=== PATIENT | female | born 1960 | race Caucasian/White ===

== ENCOUNTER → 2020-09-22 | Day surgery (SDC) | payer OTHER ==
[~2020-09-22] MED LIST: ALLEGRA ALLERG180 MG PO; ASPIRIN EC81 MG PO; CALCIUM PO; CRESTOR10 MG PO; LEXAPRO 10MG TA10 MG PO; LOVAZA1 GM PO; MULTIPLE VITAM1 EACH PO; NAPROSYN250 MG PO; PROBIOTIC1 EAC3 PO; TROSPIUM CHLORI20 MG PO; VITAMIN D PO; VITAMIN D3125 MCG PO
[2020-09-22 08:42] LABS: HCT 45.3 % (37.0-47.0); MCH 30.7 pg (25.0-31.0); MCHC 33.1 g/dL (32.0-36.0); MCV 92.8 fL (78.0-100.0); RBC 4.88 M/uL (4.20-5.40); RDW 13.5 % (11.5-14.0); WBC 6.8 K/uL (4.0-10.5)
[2020-09-22 09:05] LABS: ALBUMIN 4.2 g/dL (3.4-5.0); BILIRUBIN - TOTAL 0.7 mg/dL (0.2-1.0); BUN/CREAT RATIO (CALC) 27.5 RATIO; CREATININE 0.69 mg/dL (0.51-0.95); POTASSIUM 3.9 mmol/L (3.5-5.1); TOTAL PROTEIN 8.2 g/dL (6.4-8.2)
== END | disposition home or self-care (01) ==
LOC: FAS 07:59
PROVIDERS: Surgery
DX: Z12.11 Encounter for screening for malignant neoplasm of colon (principal); K51.40 Inflammatory polyps of colon without complications; I10 Essential (primary) hypertension; I35.8 Other nonrheumatic aortic valve disorders; E78.00 Pure hypercholesterolemia, unspecified; E78.5 Hyperlipidemia, unspecified; G47.33 Obstructive sleep apnea (adult) (pediatric); M19.90 Unspecified osteoarthritis, unspecified site; K64.9 Unspecified hemorrhoids; Z86.79 Personal history of other diseases of the circulatory system; Z95.818 Presence of other cardiac implants and grafts; Z90.710 Acquired absence of both cervix and uterus; Z80.3 Family history of malignant neoplasm of breast; Z82.49 Family history of ischemic heart disease and other diseases of the circulatory system; Z20.822 Contact with and (suspected) exposure to COVID-19; Z99.81 Dependence on supplemental oxygen
CPT/HCPCS: 36415; 80053; J2704; J7120